=== PATIENT | female | born 1940 | race Caucasian/White ===

== ENCOUNTER 2019-06-03 11:55 | Emergency (ER) | payer MEDICARE, OTHER ==
[2019-06-03] MEDS ORDERED: DIPH,PERTUS(ACELL)TETVAC-LF 0.5 ML VIAL IM ONE (12:19)
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
[2019-06-03 13:07] VITALS: RESP 20
--- NOTE | 2019-06-03 13:07 | XR ---
Chest x-ray with left RIBS HISTORY: Pain, trauma Frontal view of the chest and 4 views of the left ribs Patient is post median sternotomy. Degenerative disc changes are present in the visualized spine, the re is a slight spinal curvature. Bone mineralization is reduced. No evident pneumothorax or pleural e ffusion. Aorta is dense. Minimal subsegmental atelectatic change or scarring present in the lingula. Epicardial pacing leads again noted. No evident displaced rib fracture. IMPRESSION: No acute fracture. Bone scan could be performed for increased sensitivity as indicated.
--- NOTE | 2019-06-03 13:08 | XR ---
Left ankle HISTORY: Trauma and pain 3 views of the left ankle Bone mineralization is reduced. There is soft tissue swelling present. Alignment and joint space main tained. IMPRESSION: No fracture or dislocation.
[2019-06-03] MEDS ORDERED: LIDOCAINE 2% INJ 20 MG/ML (20 ML MDV) SQ STA (13:24)
[2019-06-03 14:27] VITALS: BP 157/78; PULSE 103; TEMP 98.2
== END 2019-06-03 14:25 | disposition home or self-care (01) ==
LOC: EC 11:55
DX: S01.511A Laceration without foreign body of lip, initial encounter (principal); S93.402A Sprain of unspecified ligament of left ankle, initial encounter; S20.212A Contusion of left front wall of thorax, initial encounter; E78.5 Hyperlipidemia, unspecified; I10 Essential (primary) hypertension; Z23 Encounter for immunization; Z79.82 Long term (current) use of aspirin; Z79.899 Other long term (current) drug therapy; Z88.1 Allergy status to other antibiotic agents; Z88.2 Allergy status to sulfonamides; Z95.2 Presence of prosthetic heart valve; V19.9XXA Pedal cyclist (driver) (passenger) injured in unspecified traffic accident, initial encounter; Y93.55 Activity, bike riding; Y92.009 Unspecified place in unspecified non-institutional (private) residence as the place of occurrence of the external cause
CPT/HCPCS: 71101; 73610; 70486; 70450; 90715; 99284; 12011; 90471; J2001